=== PATIENT | female | born 1975 | race Hispanic/Latino ===

== ENCOUNTER → 2021-08-28 | Outpatient (CLI) | payer BC | LOC: NM 10:09 | PROVIDERS: ATTEND Surgery | DX: E04.1 Nontoxic single thyroid nodule (principal) | CPT/HCPCS: 78014; A9516 ==

== ENCOUNTER 2023-08-11 07:21 | Emergency (ER) | payer BC ==
[~2023-08-11] VITALS: Ht 157.5 cm; Wt 75.6 kg
[2023-08-11] MEDS ORDERED: LEVOTHYROXINE100 MC1 PO (07:54)
[2023-08-11] MEDS ORDERED: ALENDRONATE SOD35 MG (07:54)
[2023-08-11] MEDS ORDERED: ESTRADIOL1 MG PO (07:54)
[2023-08-11] MEDS ORDERED: AMITRIPTYLINE H25 MG PO (07:54)
[2023-08-11 09:32] VITALS: O2SAT 98
== END 2023-08-11 09:39 | disposition home or self-care (01) ==
LOC: FSED 07:26
DX: R55 Syncope and collapse (principal); E03.9 Hypothyroidism, unspecified; M81.0 Age-related osteoporosis without current pathological fracture; F41.9 Anxiety disorder, unspecified; Z85.850 Personal history of malignant neoplasm of thyroid
CPT/HCPCS: 70450; 80053; 81003; 82553; 84484; 85025; 93005; 99284